=== PATIENT | male | born 1980 | race Caucasian/White ===

== ENCOUNTER 2019-11-18 20:13 | Emergency (ER) | payer BC, OTHER ==
[2019-11-18] MEDS ORDERED: NA CHLORIDE 0.9% 1,000 ML ONE (20:35)
[2019-11-18 20:51] LABS: Absolute Lymphocytes (CBC) 1.8 K/uL (0.7-4.9); Basophils % 0.5 % (0-1.3); Hematocrit 44.4 % (39.6-49.0); MPV 8.2 fL (7.6-11.3); RBC Red Blood Cell Count 4.75 M/uL (4.33-5.43)
--- NOTE | 2019-11-18 21:02 | RAD REPORT ---
EXAM DESCRIPTION: CT - Stone Protocol - 11/18/2019 8:39 pm CLINICAL HISTORY: ABD PAIN COMPARISON: No comparisons TECHNIQUE: Axial 5 mm thick images were obtained without oral or IV contrast. The [id number] span s the entirety of the system including uppermost abdomen and lung bases. All CT scans are performed using dose optimization technique as appropriate and may include automated exposure control or mA/KV adjustment according to patient size. FINDINGS: No hydronephrosis is present and no obstructing ureteral calculi. No suspicious renal mass es. Isodense masses and pyelonephritis are not excluded on a stone protocol CT scan. No significant a drenal finding. No urinary bladder suspicious finding. Imaged portions of the liver, spleen and pancreas show no suspicious findings on non-contrast imaging . No gallbladder or biliary tree abnormality identified. No gastric dilatation or wall thickening. No small bowel abnormality seen. Terminal ileum is within n ormal limits. Normal diameter appendix is seen. No wall thickening or stranding in the adjacent fat. No acute colon process seen. Rare diverticula seen in the sigmoid colon. No hernia, mass or bulky lymphadenopathy noted. No free air, free fluid or inflammatory stranding. No significant bony abnormality. IMPRESSION: No hydronephrosis, obstructing calculus or acute finding. Isodense masses and pyelonephritis are not excluded on stone protocol technique. No appendicitis or other acute GI finding.
[2019-11-18 21:03] LABS: Potassium 3.7 mmol/L (3.5-5.1)
--- NOTE | 2019-11-18 21:48 | ER ---
Nurse's Notes [facility] Name: Dustin Quinn Age: 39 yrs Sex: Male : 1980 Arrival Date: 11/18/2019 Time: 20:14 Bed 17 Private MD: Diagnosis: Lower abdominal pain, unspecified Presentation: 11/17 20:19 Chief complaint: EMS states: PT WAS WORKING IN HOT KITCHEN SINCE 2. SUDDEN ONSET RIGHT ls4 LOWER QUAD PAIN. PT ALSO STATES HE DID NOT VOID SINCE HE ARRIVED AT WORK. Coronavirus screen: Proceed with normal triage. Patient denies a cough. Patient denies shortness of breath or difficulty breathing. Patient denies measured and/or subjective temperature greater than 100.4F prior to today's visit. Patient denies travel on a cruise ship or to a country the [facility] currently lists as an affected area. Patient denies contact with known and/or suspected case of COVID-19. Ebola Screen: No symptoms or risks identified at this time. Initial Sepsis Screen: Does the patient meet any 2 criteria? No. Patient's initial sepsis screen is negative. Does the patient have a suspected source of infection? No. Patient's initial sepsis screen is negative. Risk Assessment: Do you want to hurt yourself or someone else? Patient reports no desire to harm self or others. Onset of symptoms is unknown. 20:19 Method Of Arrival: EMS: [facility] ls4 20:19 Acuity: MYLES 3 ls4 Triage Assessment: 20:22 General: Appears in no apparent distress. uncomfortable, Behavior is calm, cooperative. ls4 Pain: Complains of pain in right lower quadrant Pain currently is 2 out of 10 on a pain scale. Historical: - Allergies: 20:22 No Known Allergies; ls4 - Home Meds: 20:22 None [Active]; ls4 - PMHx: 20:22 None; ls4 - PSHx: 20:22 None; ls4 - Immunization history:: Adult Immunizations up to date. - Social history:: Smoking status: unknown. Screenin:23 Abuse screen: Denies threats or abuse. Denies injuries from another. Nutritional ls4 screening: No deficits noted. Tuberculosis screening: No symptoms or risk factors identified. Fall Risk None identified. Assessment: 20:38 General: SEE TRIAGE ASSESSMENT . ls4 21:06 Reassessment: Patient appears in no apparent distress at this time. Patient and/or ls4 family updated on plan of care and expected duration. Pain level reassessed. Patient is alert, oriented x 3, equal unlabored respirations, skin warm/dry/pink. 21:53 Reassessment: Patient appears in no apparent distress at this time. Patient and/or ls4 family updated on plan of care and expected duration. Pain level reassessed. Patient is alert, oriented x 3, equal unlabored respirations, skin warm/dry/pink. Reassessment: Patient states feeling better. Patient states symptoms have improved. Neuro: No deficits noted. Cardiovascular: No deficits noted. Respiratory: No deficits noted. Vital Signs: 20:19 BP 129 / 96; Pulse 82; Resp 16; Temp 98.9; Pulse Ox 100% on R/A; Weight 88.45 kg; ls4 Height 6 ft. 1 in. (185.42 cm); Pain 2/10; 22:27 BP 118 / 74; Pulse 78; Resp 16; Temp 98.4(O); Pulse Ox 99% on R/A; Pain 0/10; ls4 20:19 Body Mass Index 25.73 (88.45 kg, 185.42 cm) ls4 ED Course: 20:14 Patient arrived in ED. ds1 20:17 Jennifer Baca FNP-C [facility]. kb 20:17 Derrick John MD is Attending Physician. kb 20:19 Becki Mortensen, ANTHONY is Primary Nurse. ls4 20:22 Triage completed. ls4 20:23 Arm band placed on. ls4 20:23 No provider procedures requiring assistance completed. Maintain EMS IV. Dressing ls4 intact. Good blood return noted. Site clean \T\ dry. Gauge \T\ site: 18 lt ac. Patient maintains SpO2 saturation greater than 95% on room air. 20:24 Patient has correct armband on for positive identification. Bed in low position. Call ls4 light in reach. Side rails up X 1. rug cutter on. Pulse ox on. NIBP on. 20:39 CT Stone Protocol In Process Unspecified. EDMS Administered Medications: 20:38 Drug: NS 0.9% 1000 ml Route: IV; Rate: 1000 ml; Site: left antecubital; ls4 21:40 Follow up: IV Status: Completed infusion; IV Intake: 1000ml ls4 Intake: 21:40 IV: 1000ml; Total: 1000ml. ls4 Outcome: 21:47 Discharge ordered by MD. morley 22:28 Patient left the ED. ls4 Signatures: Dispatcher [employer] EDJennifer Hinds, JULIETTE SCHULER-Sondra Harden ds1 Bceki Mortensen RN RN ls4
--- NOTE | 2019-11-18 21:48 | EDPHYS ---
Physician Documentation [facility] Name: Dustin Quinn Age: 39 yrs Sex: Male : 1980 Arrival Date: 11/18/2019 Time: 20:14 Bed 17 Private MD: ED Physician Derrick John HPI: 11/17 20:29 This 39 yrs old Male presents to ER via EMS with complaints of RLQ pain. kb 20:29 The patient presents with abdominal pain right lower quadrant. Onset: The kb symptoms/episode began/occurred 1 hour(s) ago. The symptoms do not radiate. Associated signs and symptoms: none. The symptoms are described as sharp. Modifying factors: The symptoms are alleviated by nothing, the symptoms are aggravated by nothing. Severity of pain: At its worst the pain was severe in the emergency department the pain has improved markedly. The patient has not experienced similar symptoms in the past. The patient has not recently seen a physician. Pt reports sudden, severe RLQ pain that started 1 hour ago, now pain is dull. States he hasn't urinated since 1500. . Historical: - Allergies: 20:22 No Known Allergies; ls4 - Home Meds: 20:22 None [Active]; ls4 - PMHx: 20:22 None; ls4 - PSHx: 20:22 None; ls4 - Immunization history:: Adult Immunizations up to date. - Social history:: Smoking status: unknown. ROS: 20:31 Constitutional: Negative for fever, chills, and weight loss, Cardiovascular: Negative kb for chest pain, palpitations, and edema, Respiratory: Negative for shortness of breath, cough, wheezing, and pleuritic chest pain, Back: Negative for injury and pain, : Negative for injury, bleeding, discharge, and swelling, MS/Extremity: Negative for injury and deformity, Skin: Negative for injury, rash, and discoloration, Neuro: Negative for headache, weakness, numbness, tingling, and seizure. 20:31 Abdomen/GI: Positive for abdominal pain, Negative for nausea, vomiting, and diarrhea. Exam: 20:31 Constitutional: This is a well developed, well nourished patient who is awake, alert, kb and in no acute distress. Head/Face: Normocephalic, atraumatic. Chest/axilla: Normal chest wall appearance and motion. Nontender with no deformity. No lesions are appreciated. Cardiovascular: Regular rate and rhythm with a normal S1 and S2. No gallops, murmurs, or rubs. Normal PMI, no JVD. No pulse deficits. Respiratory: Lungs have equal breath sounds bilaterally, clear to auscultation and percussion. No rales, rhonchi or wheezes noted. No increased work of breathing, no retractions or nasal flaring. Back: No spinal tenderness. No costovertebral tenderness. Full range of motion. Skin: Warm, dry with normal turgor. Normal color with no rashes, no lesions, and no evidence of cellulitis. MS/ Extremity: Pulses equal, no cyanosis. Neurovascular intact. Full, normal range of motion. Neuro: Awake and alert, GCS 15, oriented to person, place, time, and situation. Cranial nerves II-XII grossly intact. Motor strength 5/5 in all extremities. Sensory grossly intact. Cerebellar exam normal. Normal gait. 20:31 Abdomen/GI: Inspection: abdomen appears normal, Bowel sounds: normal, in all quadrants, Palpation: soft, in all quadrants, mild abdominal tenderness, in the right lower quadrant. Vital Signs: 20:19 BP 129 / 96; Pulse 82; Resp 16; Temp 98.9; Pulse Ox 100% on R/A; Weight 88.45 kg; ls4 Height 6 ft. 1 in. (185.42 cm); Pain 2/10; 22:27 BP 118 / 74; Pulse 78; Resp 16; Temp 98.4(O); Pulse Ox 99% on R/A; Pain 0/10; ls4 20:19 Body Mass Index 25.73 (88.45 kg, 185.42 cm) ls4 MDM: 20:17 Patient medically screened. kb 20:30 Data reviewed: vital signs, nurses notes. Data interpreted: Pulse oximetry: on room air kb is 100 %. Interpretation: normal. 21:47 Counseling: I had a detailed discussion with the patient and/or guardian regarding: the kb historical points, exam findings, and any diagnostic results supporting the discharge/admit diagnosis, lab results, radiology results, the need for outpatient follow up, a family practitioner, to return to the emergency department if symptoms worsen or persist or if there are any questions or concerns that arise at home. 11/17 20:17 Order name: Basic Metabolic Panel; Complete Time: 21:08 kb 11/17 20:17 Order name: CBC with Diff; Complete Time: 21:21 kb 11/17 20:17 Order name: IV Saline Lock; Complete Time: 20:19 kb 11/17 20:17 Order name: CT Stone Protocol; Complete Time: 21:08 kb 11/17 21:49 Order name: Urine Dipstick--Ancillary (enter results); Complete Time: 22:11 ar5 11/17 20:17 Order name: Labs collected and sent; Complete Time: 20:37 kb 11/17 20:17 Order name: Urine Dipstick-Ancillary (obtain specimen); Complete Time: 21:47 kb Administered Medications: 20:38 Drug: NS 0.9% 1000 ml Route: IV; Rate: 1000 ml; Site: left antecubital; ls4 21:40 Follow up: IV Status: Completed infusion; IV Intake: 1000ml ls4 Disposition: 11/18 08:42 Co-signature as Attending Physician, Derrick John MD I agree with the assessment and salome plan of care. Disposition: 11/18/19 21:47 Discharged to Home. Impression: Lower abdominal pain, unspecified. - Condition is Stable. - Discharge Instructions: Abdominal Pain, Adult, [id number]. - Medication Reconciliation Form, Thank You Letter, Antibiotic Education, Prescription Opioid Use, Work release form form. - Follow up: Emergency Department; When: As needed; Reason: Worsening of condition. Follow up: Private Physician; When: 2 - 3 days; Reason: Recheck today's complaints, Continuance of care, Re-evaluation by your physician. Signatures: Dispatcher [employer] Jennifer Kirkpatrick, GENER[employer] WORKER-C HARINI-Derrick Shea MD MD cha Stewart, Lisa, RN RN ls4 Corrections: (The following items were deleted from the chart) 11/17 22:28 21:47 11/18/2019 21:47 Discharged to Home. Impression: Lower abdominal pain, ls4 unspecified. Condition is Stable. Forms are Medication Reconciliation Form, Thank You Letter, Antibiotic Education, Prescription Opioid Use. Follow up: Emergency Department; When: As needed; Reason: Worsening of condition. Follow up: Private Physician; When: 2 - 3 days; Reason: Recheck today's complaints, Continuance of care, Re-evaluation by your physician. kb
[2019-11-18 22:10] LABS: Urine Blood NEGATIVE (NEG); Urine Glucose NEGATIVE (NEG); Urine Protein NEGATIVE (NEG); Urine Specific Gravity 1.015 (1.005-1.030); Urine pH 5.5 (5.0-7.0)
[2019-11-18 22:46] VITALS: BP 118/74; TEMP 98.4; O2SAT 99
== END 2019-11-18 22:28 | disposition home or self-care (01) ==
LOC: ER 20:13
DX: R10.31 Right lower quadrant pain (principal)
CPT/HCPCS: 85025; 80048; 36415; 81003; 76377; 74176; 96360; 99285; J7030